=== PATIENT | female | born 1985 | race African-American/Black ===

== ENCOUNTER → 2023-01-17 | Day surgery (SDC) | payer BC ==
[~2023-01-17] MED LIST: LACTATED RINGER'S 1,000 ML ONE; LIDOCAINE HCL 2% 2 ML AMP ONE; MIDAZOLAM HCL 2 MG/2 ML VIAL ONE; PROPOFOL IV EMULSION 10 MG/ML 20 ML VIAL ONE
[2023-01-17 12:44] VITALS: TEMP 97.8
[2023-01-17 13:25] VITALS: BP 127/87; PULSE 60; RESP 15; O2SAT 100
== END | disposition home or self-care (01) ==
LOC: OR 08:54
PROVIDERS: ATTEND Internal Medicine Gastroenterology
DX: K62.5 Hemorrhage of anus and rectum (principal); K59.00 Constipation, unspecified; K64.8 Other hemorrhoids; Z86.010 Personal history of colon polyps; R12 Heartburn; J45.909 Unspecified asthma, uncomplicated; Z79.899 Other long term (current) drug therapy; Z68.42 Body mass index [BMI] 45.0-49.9, adult; Z87.898 Personal history of other specified conditions
CPT/HCPCS: 45378; J2001; J2250; J2704; J7121